=== PATIENT | male | born 1995 | race African-American/Black ===

== ENCOUNTER 2020-09-18 12:58 | Emergency (ER) | payer SELFPAY ==
--- NOTE | 2020-09-18 13:43 | ER ---
Nurse's Notes [facility] Name: Catie Patton Age: 25 yrs Sex: Male : 1995 Arrival Date: 09/18/2020 Time: 13:02 Bed 15 Private MD: Diagnosis: Periapical abscess without sinus Presentation: 09/18 13:09 Chief complaint: Patient states: L upper jaw tooth pain for 4-5 days. Has a dentist ll1 appt. for Saturday. No known fever. Coronavirus screen: Client denies travel out of the [place] in the last 14 days. At this time, the client does not indicate any symptoms associated with coronavirus-19. Ebola Screen: Patient denies travel to an Ebola-affected area in the 21 days before illness onset. Initial Sepsis Screen: Does the patient meet any 2 criteria? No. Patient's initial sepsis screen is negative. Does the patient have a suspected source of infection? Yes: Other: tooth pain/swelling. Risk Assessment: Do you want to hurt yourself or someone else? Patient reports no desire to harm self or others. Onset of symptoms was September 14, 2020. 13:09 Method Of Arrival: Ambulatory ll1 13:09 Acuity: CARLOS 4 ll1 Historical: - Allergies: 13:09 No Known Allergies; ll1 - PMHx: 13:09 None; ll1 - PSHx: 13:09 None; ll1 - Immunization history:: Flu vaccine is not up to date. - Social history:: Smoking status: Patient denies any tobacco usage or history of. Screenin:27 Abuse screen: Denies threats or abuse. Nutritional screening: No deficits noted. vg1 Tuberculosis screening: No symptoms or risk factors identified. Fall Risk None identified. Assessment: 13:25 General: Appears in no apparent distress. comfortable, Behavior is calm, cooperative. vg1 Pain: Complains of pain in left ear, left cheek and mouth Pain currently is 10 out of 10 on a pain scale. Quality of pain is described as aching, shooting, throbbing. Neuro: Level of Consciousness is awake, alert, obeys commands, Oriented to person, place, time, situation. Cardiovascular: Patient's skin is warm and dry. Respiratory: Airway is patent Respiratory effort is even, unlabored, Respiratory pattern is regular, symmetrical. GI: No signs and/or symptoms were reported involving the gastrointestinal system. : No signs and/or symptoms were reported regarding the genitourinary system. EENT: Reports Left side of mouth and cheek pain that shoots to left side of ear.. Derm: Skin is intact, is healthy with good turgor. Musculoskeletal: Circulation, motion, and sensation intact. Vital Signs: 13:09 BP 148 / 87; Pulse 82; Resp 17; Temp 98.8; Pulse Ox 99% ; Weight 95.25 kg; Height 6 ft. ll1 1 in. (185.42 cm); Pain 10/10; 13:27 BP 132 / 87; Pulse 70; Resp 14; Pulse Ox 98% on R/A; vg1 13:09 Body Mass Index 27.71 (95.25 kg, 185.42 cm) 1 ED Course: 13:02 Patient arrived in ED. rg4 13:08 Arm band placed on. 1 13:10 Triage completed. 1 13:11 Ayana Tarango, RN is Primary Nurse. 1 13:12 Taco Olvera PA is PHCP. [facility] 13:12 Dinesh Marino MD is Attending Physician. [facility] 13:27 Patient has correct armband on for positive identification. Bed in low position. Call [facility] light in reach. Side rails up X 1. 13:42 Alcides Leo DDS is Referral Physician. [facility] 13:52 No provider procedures requiring assistance completed. Patient did not have IV access [facility] during this emergency room visit. Administered Medications: No medications were administered Outcome: 13:43 Discharge ordered by MD. [facility] 13:52 Discharged to home ambulatory. [facility] 13:52 Condition: stable 13:52 Discharge instructions given to patient, Instructed on discharge instructions, follow up and referral plans. medication usage, Demonstrated understanding of instructions, follow-up care, medications, Prescriptions given X 2. 13:53 Patient left the ED. 1 Signatures: Taco Olvera PA PA jmm Garcia, Rubi rg4 Ayana Tarango RN RN 1 Linda Eng RN RN 1
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
[2020-09-18 14:30] VITALS: BP 132/87; O2SAT 98
== END 2020-09-18 13:53 | disposition home or self-care (01) ==
LOC: ER 12:58
DX: K04.7 Periapical abscess without sinus (principal)
CPT/HCPCS: 99282

== ENCOUNTER 2022-12-23 17:08 | Emergency (ER) | payer OTHER, SELFPAY ==
[2022-12-23] MEDS ORDERED: KETOROLAC 30 MG/ML INJ ONE (17:40)
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
[2022-12-23 19:16] VITALS: TEMP 98.2; O2SAT 98
[2022-12-23 19:18] VITALS: BP 128/80
== END 2022-12-23 18:55 | disposition home or self-care (01) ==
LOC: ER 17:08
DX: S39.012A Strain of muscle, fascia and tendon of lower back, initial encounter (principal); S29.012A Strain of muscle and tendon of back wall of thorax, initial encounter; S40.012A Contusion of left shoulder, initial encounter; V49.50XA Passenger injured in collision with unspecified motor vehicles in traffic accident, initial encounter
CPT/HCPCS: 72100